=== PATIENT | female | born 1990 | race Caucasian/White ===

== ENCOUNTER 2016-09-23 15:54 | Emergency (ER) | payer BC ==
[2016-09-23 16:01] VITALS: BP 127/72
--- NOTE | 2016-09-23 16:08 | UC ---
Complaint Female HPI - HPI Summary HPI Summary: 26 YEAR OLD FEMALE PRESENTS WITH COMPLAINS OF SHARP RADIATING RIGHT SIDED PELVIC PAIN. I WILL SEND HER TO THE ER TO RULE OUT OVARIAN TORSION/ECTOPIC - History Of Current Complaint Chief Complaint: UCGU Stated Complaint: PELVIC PAIN NAUSEA Time Seen by Provider: 09/23/16 16:08 Hx Last Menstrual Period: 08/26/16, 09/23/16 - Allergies/Home Medications Allergies/Adverse Reactions: Allergies Allergy/AdvReac Type Severity Reaction Status Date / Time Cephalexin [From Keflex] Allergy Intermediate Vomiting Verified 09/23/16 17:29 Adhesive Tape Allergy Rash Verified 09/23/16 17:29 [Tegaderm Dressing] Sulfamethoxazole Allergy Vomiting Verified 09/23/16 17:29 w/Trimethoprim [From Bactrim] Home Medications: Home Medications NK [No Home Medications Reported] 09/23/16 [History Confirmed 09/23/16] PMH/Surg Hx/FS Hx/Imm Hx Previously Healthy: Yes - Surgical History Surgical History: Yes Surgery Procedure, Year, and Place: tonsillectomy - Family History Known Family History: Positive: None - no cardio-vascular issue in family lineage, Cardiac Disease, Diabetes - Social History Alcohol Use: Occasionally Substance Use Type: None Smoking Status (MU): Never Smoked Tobacco Have You Smoked in the Last Year: No - Immunization History Most Recent Influenza Vaccination: 02/27/13 Most Recent Tetanus Shot: 06/05/13 Most Recent Pneumonia Vaccination: never Review of Systems Constitutional: Negative Skin: Negative Eyes: Negative ENT: Negative Respiratory: Negative Cardiovascular: Negative Gastrointestinal: Other - RIGHT SIDED PELVIC PAIN Genitourinary: Negative Motor: Negative Neurovascular: Negative Musculoskeletal: Negative Neurological: Negative Psychological: Negative All Other Systems Reviewed And Are Negative: Yes Physical Exam Triage Information Reviewed: Yes Vital Signs: Initial Vital Signs Temp 37.3 C 09/23/16 15:56 Pulse 82 09/23/16 15:56 Resp 18 09/23/16 15:56 BP 127/72 09/23/16 15:56 Pulse Ox 100 09/23/16 15:56 Eye Exam: Normal ENT Exam: Normal Dental Exam: Normal Neck exam: Normal Neck: Positive: 1 Respiratory Exam: Normal Cardiovascular Exam: Normal Abdomen Description: Positive: Other: - RLQ TENDER Musculoskeletal Exam: Normal Neurological Exam: Normal Psychological Exam: Normal Skin Exam: Normal Complaint Female Dx - Differential Dx/Diagnosis Provider Diagnoses: RIGHT SIDED PELVIC PAIN Discharge - Discharge Plan Condition: Stable Disposition: HOME Patient Education Materials: Pelvic Pain (ED) Referrals: Nirav Aj MD [Primary Care Provider] - If Needed Additional Instructions: PLEASE GO TO ER TO RULE OUT OVARIAN TORSION.
== END 2016-09-23 16:46 | disposition home or self-care (01) ==
LOC: UCEAST 15:54
DX: R10.2 Pelvic and perineal pain (principal); R11.0 Nausea; R10.813 Right lower quadrant abdominal tenderness; Z32.02 Encounter for pregnancy test, result negative; Z88.1 Allergy status to other antibiotic agents; Z88.2 Allergy status to sulfonamides; Z91.048 Other nonmedicinal substance allergy status
CPT/HCPCS: 81003; 84702; 99211; G0463

== ENCOUNTER 2016-09-23 17:10 | Emergency (ER) | payer BC ==
[2016-09-23 19:05] LABS: Hematocrit 40 % (35-47); Hemoglobin 13.5 g/dl (12.0-16.0); Mean Corpuscular HGB Conc 34 g/dl (31-36); Mean Corpuscular Hemoglobin 28 pg (27-31); Mean Corpuscular Volume 82 fL (80-97); Mean Platelet Volume 9 um3 (7.4-10.4); Red Blood Count 4.83 10^6/ul (4.0-5.4); Red Cell Distribution Width 13 % (10.5-15); White Blood Count 7.6 10^3/ul (3.5-10.8)
[2016-09-23 19:17] LABS: Urine Bacteria Absent (Absent); Urine Bilirubin Negative (Negative); Urine Glucose Negative (Negative); Urine Nitrite Negative (Negative)
[2016-09-23 19:21] LABS: Albumin 4.2 g/dL (3.2-5.2); BUN/Creatinine Ratio 14.7 (8-20); C Reactive Protein 3.6 mg/L (< 5.00); EGFR African American 120.1 (>60); EGFR Non-African American 93.4 (>60); Globulin 2.5 g/dL (2-4); Potassium 3.6 mmol/L (3.5-5.0); Total Bilirubin 0.4 mg/dL (0.2-1.0); Total Protein 6.7 g/dL (6.4-8.9)
--- NOTE | 2016-09-23 19:39 | RAD ---
INDICATION: Pelvic pain and vaginal bleeding COMPARISON: CT abdomen pelvis August 05, 2012 TECHNIQUE: Real-time transabdominal only ultrasound examination of the female pelvis including grayscale and Doppler color flow imaging. FINDINGS: Uterus: The uterus is normal in size and echogenicity measuring 9.0 x 5.0 x 5.470. The endometrial stripe is smooth and uniform measuring 6 mm in thickness. Ovaries: The right and left ovary measure 3.9 x 2.0 x 2.3 cm and 3.2 x 2.5 x 3.4 cm, respectively. Normal arterial and venous waveforms are identified. Appearance is within normal limits for the patient's age. There is small amount of free fluid in the cul-de-sac. IMPRESSION: There is a small amount of free pelvic fluid in this otherwise normal and age-appropriate pelvic ultrasound.
[2016-09-23 20:19] VITALS: BP 123/67
--- NOTE | 2016-09-25 14:43 | ED ---
Rachel Butterfield SooYoung, scribed for Carlos A Velasquez MD on 09/23/16 at 1810 . GI/ HPI - HPI Summary HPI Summary: A 26 y/o F [place] [facility] with c/o sudden-onset, pelvic pain onset this AM. Associated sx: vaginal bleeding, breast "burning", nausea. Denies vaginal discharge, bloating. Pain radiating to back and hip, described as stabbing. Pt was at rest at work at onset of pain. She notes having some cramping last week. Pt was having pain with intercourse intermittently over past 2 months. LNMP:August 26. Spoke to clinical administrative coordinator, Cynthia Charles, who recommended she come in for evaluation. Preg test [place] [facility] [place]. G2. Nonsmoker, no ETOH. Denies PMHx. FHx: ovarian cysts with hemorrhaging, hysterectomy. - History of Current Complaint Chief Complaint: EDOBProblems Time Seen by Provider: 09/23/16 17:38 Stated Complaint: PELVIC PAIN-SENT FROM [facility] Hx Obtained From: Patient Hx Last Menstrual Period: 08/26/16, 09/23/16 Onset/Duration: Started Hours Ago - this AM, Still Present Timing: Constant Severity: Moderate Current Severity: Moderate Pain Intensity: 3 - out of 10 Pain Characteristics: Sharp, Cramping Pain Radiates to: Back Associated Signs and Symptoms: Positive: Nausea Additional Signs & Symptoms: Positive: Vaginal Bleeding, Other: - pos: breat "burning"; neg: bloating. Negative: Vaginal Discharge, Positive Test - Allergy/Home Medications Allergies/Adverse Reactions: Allergies Allergy/AdvReac Type Severity Reaction Status Date / Time Cephalexin [From Keflex] Allergy Intermediate Vomiting Verified 09/23/16 17:29 Adhesive Tape Allergy Rash Verified 09/23/16 17:29 [Tegaderm Dressing] Sulfamethoxazole Allergy Vomiting Verified 09/23/16 17:29 w/Trimethoprim [From Bactrim] PMH/Surg Hx/FS Hx/Imm Hx Previously Healthy: Yes Endocrine/Hematology History: Denies: Hx Diabetes, Hx Thyroid Disease Cardiovascular History: Denies: Hx Hypertension Respiratory History: Denies: Hx Asthma, Hx Chronic Obstructive Pulmonary Disease (COPD) GI History: Reports: Hx Ulcer History: Reports: Other Problems/Disorders - UTI this week - Surgical History Surgery Procedure, Year, and Place: tonsillectomy Infectious Disease History: Denies: Hx Hepatitis, Hx Human Immunodeficiency Virus (HIV), History Other Infectious Disease, Traveled Outside the [place] in Last 30 Days - Family History Known Family History: Positive: Cardiac Disease, Diabetes, Other - mother: ovarian cysts, hysterectomy - Social History Occupation: Employed Full-time Lives: With Family Alcohol Use: Occasionally Hx Substance Use: No Substance Use Type: Reports: None Hx Tobacco Use: No Smoking Status (MU): Never Smoked Tobacco Have You Smoked in the Last Year: No Review of Systems Negative: Fever Positive: Nausea. Negative: Other - neg: bloating Positive: pain - pelvic, other - pos: vaginal bleeding. Negative: discharge - vaginal Positive: Other - pos: breast "burning" All Other Systems Reviewed And Are Negative: Yes Physical Exam - Summary Physical Exam Summary: The patient is well-nourished in no acute distress and in no acute pain. The skin is warm and dry and skin color reflects adequate perfusion. HEENT: The head is normocephalic and atraumatic. The pupils are equal and reactive. The conjunctivae are clear and without drainage. Nares are patent and without drainage. Mouth reveals moist mucous membranes and the throat is without erythema and exudate. The external ears are intact. The ear canals are patent and without drainage. The tympanic membranes are intact. Neck is supple with full range of motion and non-tender. There are no carotid bruits. There is no neck vein distension. Respiratory: Chest is non-tender. Lungs are clear to auscultation and breath sounds are symmetrical and equal. Cardiovascular: Hear is regular rate and rhythm. There is no murmur or rub auscultated. There is no peripheral edema and pulses are symmetrical and equal. Abdomen: The abdomen is soft. There are normal bowel sounds heard in all four quadrants and there is no organomegaly palpated. There is no CVA tenderness. Tenderness over R ovary. No pain over uterus or over L ovary. No McBurney's tenderness. No guarding. Musculoskeletal: There is no back pain noted. Extremities are non-tender with full range of motion. There is good capillary refill. There is no peripheral edema or calf tenderness elicited. Neurological: Patient is alert and oriented to person, place and time. The patient has symmetrical motor strength in all four extremities. Cranial nerves are grossly intact. Deep tendon reflexes are symmetrical and equal in all four extremities. Psychiatric: The patient has an appropriate affect and does not exhibit any anxiety or depression. Triage Information Reviewed: Yes Vital Signs On Initial Exam: Initial Vitals Temp Pulse Resp BP Pulse Ox 98.6 F 91 18 138/85 100 09/23/16 17:26 09/23/16 17:26 09/23/16 17:26 09/23/16 17:26 09/23/16 17:26 Vital Signs Reviewed: Yes Diagnostics - Vital Signs Vital Signs Temp Pulse Resp BP Pulse Ox 09/23/16 17:26 98.6 F 91 18 138/85 100 - Laboratory Lab Results: Lab Results 09/23/16 09/23/16 09/23/16 Range/Units 18:39 18:54 18:54 WBC 7.6 (3.5-10.8) 10^3/ul RBC 4.83 (4.0-5.4) 10^6/ul Hgb 13.5 (12.0-16.0) g/dl Hct 40 (35-47) % MCV 82 (80-97) fL MCH 28 (27-31) pg MCHC 34 (31-36) g/dl RDW 13 (10.5-15) % Plt Count 211 (150-450) 10^3/ul MPV 9 (7.4-10.4) um3 Neut % (Auto) 66.4 (38-83) % Lymph % (Auto) 22.3 L (25-47) % Crane % (Auto) 10.0 H (1-9) % Eos % (Auto) 0.7 (0-6) % Baso % (Auto) 0.6 (0-2) % Absolute Neuts (auto) 5.0 (1.5-7.7) 10^3/ul Absolute Lymphs (auto) 1.7 (1.0-4.8) 10^3/ul Absolute Monos (auto) 0.8 (0-0.8) 10^3/ul Absolute Eos (auto) 0.1 (0-0.6) 10^3/ul Absolute Basos (auto) 0 (0-0.2) 10^3/ul Absolute Nucleated RBC 0 10^3/ul Nucleated RBC % 0 Sodium 136 (133-145) mmol/L Potassium 3.6 (3.5-5.0) mmol/L Chloride 106 (101-111) mmol/L Carbon Dioxide 25 (22-32) mmol/L Anion Gap 5 (2-11) mmol/L BUN 11 (6-24) mg/dL Creatinine 0.75 (0.51-0.95) mg/dL Est GFR ( Amer) 120.1 (>60) Est GFR (Non-Af Amer) 93.4 (>60) BUN/Creatinine Ratio 14.7 (8-20) Glucose 99 (70-100) mg/dL Lactic Acid (0.5-2.0) mmol/L Calcium 9.0 (8.6-10.3) mg/dL Total Bilirubin 0.40 (0.2-1.0) mg/dL AST 14 (13-39) U/L ALT 9 (7-52) U/L Alkaline Phosphatase 32 L (34-104) U/L C-Reactive Protein 3.60 (< 5.00) mg/L Total Protein 6.7 (6.4-8.9) g/dL Albumin 4.2 (3.2-5.2) g/dL Globulin 2.5 (2-4) g/dL Albumin/Globulin Ratio 1.7 (1-3) Lipase 37 (11.0-82.0) U/L Urine Color Straw Urine Appearance Clear Urine pH 7.0 (5-9) Ur Specific [place] 1.006 L (1.010-1.030) Urine Protein Negative (Negative) Urine Ketones Negative (Negative) Urine Blood 2+ H (Negative) Urine Nitrate Negative (Negative) Urine Bilirubin Negative (Negative) Urine Urobilinogen Negative (Negative) Ur Leukocyte Esterase Negative (Negative) Urine WBC (Auto) Trace(0-5/hpf) (Absent) Urine RBC (Auto) Trace(0-2/hpf) (Absent) Ur Squamous Epith Cells Present H (Absent) Urine Bacteria Absent (Absent) Urine Glucose Negative (Negative) 09/23/16 Range/Units 18:54 WBC (3.5-10.8) 10^3/ul RBC (4.0-5.4) 10^6/ul Hgb (12.0-16.0) g/dl Hct (35-47) % MCV (80-97) fL MCH (27-31) pg MCHC (31-36) g/dl RDW (10.5-15) % Plt Count (150-450) 10^3/ul MPV (7.4-10.4) um3 Neut % (Auto) (38-83) % Lymph % (Auto) (25-47) % Crane % (Auto) (1-9) % Eos % (Auto) (0-6) % Baso % (Auto) (0-2) % Absolute Neuts (auto) (1.5-7.7) 10^3/ul Absolute Lymphs (auto) (1.0-4.8) 10^3/ul Absolute Monos (auto) (0-0.8) 10^3/ul Absolute Eos (auto) (0-0.6) 10^3/ul Absolute Basos (auto) (0-0.2) 10^3/ul Absolute Nucleated RBC 10^3/ul Nucleated RBC % Sodium (133-145) mmol/L Potassium (3.5-5.0) mmol/L Chloride (101-111) mmol/L Carbon Dioxide (22-32) mmol/L Anion Gap (2-11) mmol/L BUN (6-24) mg/dL Creatinine (0.51-0.95) mg/dL Est GFR ( Amer) (>60) Est GFR (Non-Af Amer) (>60) BUN/Creatinine Ratio (8-20) Glucose (70-100) mg/dL Lactic Acid 0.4 L (0.5-2.0) mmol/L Calcium (8.6-10.3) mg/dL Total Bilirubin (0.2-1.0) mg/dL AST (13-39) U/L ALT (7-52) U/L Alkaline Phosphatase (34-104) U/L C-Reactive Protein (< 5.00) mg/L Total Protein (6.4-8.9) g/dL Albumin (3.2-5.2) g/dL Globulin (2-4) g/dL Albumin/Globulin Ratio (1-3) Lipase (11.0-82.0) U/L Urine Color Urine Appearance Urine pH (5-9) Ur Specific [place] (1.010-1.030) Urine Protein (Negative) Urine Ketones (Negative) Urine Blood (Negative) Urine Nitrate (Negative) Urine Bilirubin (Negative) Urine Urobilinogen (Negative) Ur Leukocyte Esterase (Negative) Urine WBC (Auto) (Absent) Urine RBC (Auto) (Absent) Ur Squamous Epith Cells (Absent) Urine Bacteria (Absent) Urine Glucose (Negative) Result Diagrams: 09/23/16 18:54 09/23/16 18:54 Lab Statement: Any lab studies that have been ordered have been reviewed, and results considered in the medical decision making process. - Ultrasound No standard instances Ultrasound Interpretation: No Acute Changes - PELVIS U/S, IMPRESSION: There is a small amount of free pelvic fluid in this otherwise normal and age- appropriate pelvic ultrasound. Ultrasound Interpretation Completed By: Radiologist Re-Evaluation - Re-Evaluation 1 Re-Evaluation Time: 20:05 Change: Improved Comment: Discussed, reviewed U/S, told pt it was probably a ruptured ovarian cyst. Pt does not want pain medication. Pt voiced understanding. GIGU Course/Dx - Course Course Of Treatment: Pt is a 26 y/o F [place] [facility] with c/o sudden -onset, pelvic pain onset this AM. Associated sx: vaginal bleeding, breast "burning", nausea. Denies vaginal discharge, bloating. Pain radiating to back and hip, described as stabbing. Pt was at rest at work at onset of pain. She notes having some cramping last week. Pt was having pain with intercourse intermittently over past 2 months. LNMP: 08/26. Spoke to clinical administrative coordinator, Cynthia Charles , who recommended she come in for evaluation. Preg test [place] [facility] [place]. G2. Nonsmoker, no ETOH. Denies PMHx. FHx: ovarian cysts with hemorrhaging, hysterectomy. Blood work and lab results are without significant abnormalities. UA is nml but 2+ blood is present, as expected with sx. Pelvis U/ S showed "small amount of free pelvic fluid in this otherwise normal and. age- appropriate pelvic ultrasound.". 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 - Diagnoses Differential Diagnoses - Female: Ovarian Cyst, Ovarian Torsion, Renal Calculi, Ureteral Calculi Provider Diagnoses: Ruptured ovarian cyst Discharge - Discharge Plan Condition: Stable Disposition: HOME Patient Education Materials: Ruptured Ovarian Cyst (ED) Referrals: Nirav Aj MD [Primary Care Provider] - Additional Instructions: Follow up with your mid- tomorrow. Please return to the ED if you experience new or worsening symptoms. The documentation as recorded by the Rachel tate SooYoung accurately reflects the service I personally performed and the decisions made by me, Carlos A Velasquez MD.
== END 2016-09-23 20:29 | disposition home or self-care (01) ==
LOC: ED 17:10
DX: N83.209 Unspecified ovarian cyst, unspecified side (principal); N93.9 Abnormal uterine and vaginal bleeding, unspecified; R11.0 Nausea
CPT/HCPCS: 36415; 76856; 80053; 81003; 81015; 83605; 83690; 85025; 86140; 99282

== ENCOUNTER 2016-12-25 11:22 | Emergency (ER) | payer BC, OTHER ==
[2016-12-25 11:37] VITALS: BP 116/62
--- NOTE | 2016-12-25 12:09 | UC ---
Headache HPI - HPI Summary HPI Summary: right ear pain, left hand numbness and visual waves. These are usual signs of a migraine for her--- She is here seeking medication ( refill) for migraine medication - History Of Current Complaint Chief Complaint: UCGeneralIllness Stated Complaint: EAR PAIN Hx Obtained From: Patient Hx Last Menstrual Period: 12/16/16 ?: No Onset/Duration: Gradual Onset Character: Typical Headache, Migraine Location of Headache: Frontal Aggravating Factor(s): Nothing Allevating Factor(s): Nothing Associated Signs And Symptoms: Positive: Nausea, Visual Changes - Allergies/Home Medications Allergies/Adverse Reactions: Allergies Allergy/AdvReac Type Severity Reaction Status Date / Time Cephalexin [From Keflex] Allergy Intermediate Vomiting Verified 12/25/16 11:37 Adhesive Tape Allergy Rash Verified 12/25/16 11:37 [Tegaderm Dressing] Sulfamethoxazole Allergy Vomiting Verified 12/25/16 11:37 w/Trimethoprim [From Bactrim] Home Medications: Home Medications [id number]-[id number] [Excedrin Migraine 250-250-65 mg] 2 tab PO Q6H PRN 12/25/16 [History Confirmed 12/25/16] PMH/Surg Hx/FS Hx/Imm Hx Neurological History: Migraine - Surgical History Surgical History: Yes Surgery Procedure, Year, and Place: tonsillectomy - Family History Known Family History: Positive: None - no cardio-vascular issue in family lineage, Cardiac Disease, Diabetes, Other - mother: ovarian cysts, hysterectomy - Social History Occupation: Employed Full-time Lives: With Family Alcohol Use: None Substance Use Type: None Smoking Status (MU): Never Smoked Tobacco Have You Smoked in the Last Year: No - Immunization History Most Recent Influenza Vaccination: 02/27/13 Most Recent Tetanus Shot: 06/05/13 Most Recent Pneumonia Vaccination: never Review of Systems Constitutional: Negative Skin: Negative Eyes: Blurred Vision, Photophobia ENT: Ear Ache Respiratory: Negative Cardiovascular: Negative Gastrointestinal: Negative Genitourinary: Negative Motor: Negative Neurovascular: Decreased Sensation Musculoskeletal: Negative Neurological: Negative Psychological: Negative Is Patient Immunocompromised?: No All Other Systems Reviewed And Are Negative: Yes Physical Exam Triage Information Reviewed: Yes Appearance: Well-Appearing, No Pain Distress, Well-Nourished Vital Signs: Initial Vital Signs Temp 98.3 F 12/25/16 11:32 Pulse 72 12/25/16 11:32 Resp 18 12/25/16 11:32 BP 116/62 12/25/16 11:32 Pulse Ox 100 12/25/16 11:32 Vital Signs Reviewed: Yes Eye Exam: Normal Eyes: Positive: Conjunctiva Clear, Other: - eomi, perrla ENT Exam: Normal ENT: Positive: Normal ENT inspection, Hearing grossly normal, TMs normal, Uvula midline. Negative: Nasal drainage, Tonsillar swelling, Tonsillar exudate, Trismus, Muffled voice, Hoarse voice, Sinus tenderness Dental Exam: Normal Neck exam: Normal Neck: Positive: Supple, Nontender, No Lymphadenopathy Respiratory Exam: Normal Respiratory: Positive: Chest non-tender, Lungs clear, Normal breath sounds, No respiratory distress, No accessory muscle use Cardiovascular Exam: Normal Cardiovascular: Positive: RRR, No Murmur, Pulses Normal, Brisk Capillary Refill Musculoskeletal Exam: Normal Musculoskeletal: Positive: Strength Intact, ROM Intact, No Edema Neurological Exam: Normal Neurological: Positive: Alert, Muscle Tone Normal, Other: - rhomberg WNL, no pronator drift Psychological Exam: Normal Skin Exam: Normal Headache Course/Dx - Course Course Of Treatment: immetrex, zofran, follow with pcp - Differential Dx/Diagnosis Provider Diagnoses: Migraine Discharge - Discharge Plan Condition: Stable Disposition: HOME Prescriptions: Ondansetron ODT TAB* [Zofran 4 MG Odt TAB*] 4 mg PO Q6H PRN #10 tab.odt PRN Reason: nausea SUMAtriptan TAB* [Imitrex TAB*] 50 mg PO SEE INSTRUCTIONS PRN #6 tab PRN Reason: Migraine Headache Patient Education Materials: Migraine Headache (ED) Referrals: Nirav Aj MD [Primary Care Provider] - 1 Week
== END 2016-12-25 12:15 | disposition home or self-care (01) ==
LOC: UCEAST 11:22
DX: G43.909 Migraine, unspecified, not intractable, without status migrainosus (principal); Z76.0 Encounter for issue of repeat prescription; Z88.1 Allergy status to other antibiotic agents; Z88.2 Allergy status to sulfonamides; Z91.048 Other nonmedicinal substance allergy status
CPT/HCPCS: 99212; G0463

== ENCOUNTER 2017-03-05 12:50 | Emergency (ER) | payer OTHER ==
--- NOTE | 2017-03-05 15:17 | UC ---
Respiratory Complaint HPI - History of Current Complaint Chief Complaint: UCRespiratory Stated Complaint: COUGH, FEVER Time Seen by Provider: 03/05/17 15:07 Hx Obtained From: Patient Hx Last Menstrual Period: 02/11/17 Onset/Duration: Gradual Onset - started 5 days ago with cough and fever. tested neg for flu 0n Tue. now cough and sinus pain is worse and coughing up green phlegm Severity Initially: Moderate Severity Currently: Moderate Character: Cough: Nonproductive Alleviating Factors: Other - is taking OTC DayQuil.NyQuil with little relief Associated Signs And Symptoms: Positive: Fever, Chills, Nasal Congestion, Sinus Discomfort - Allergies/Home Medications Allergies/Adverse Reactions: Allergies Allergy/AdvReac Type Severity Reaction Status Date / Time Cephalexin [From Keflex] Allergy Intermediate Vomiting Verified 12/25/16 11:37 Adhesive Tape Allergy Rash Verified 12/25/16 11:37 [Tegaderm Dressing] Sulfamethoxazole Allergy Vomiting Verified 12/25/16 11:37 w/Trimethoprim [From Bactrim] Home Medications: Home Medications Dextromethorphan-Phenylephrine [Daytime Cold & Flu Relief 10-5-325 mg] 1 cap PO 03/05/17 [History] Ibuprofen [Advil] 600 mg PO 03/05/17 [History] PMH/Surg Hx/FS Hx/Imm Hx Previously Healthy: Yes - Surgical History Surgical History: Yes Surgery Procedure, Year, and Place: tonsillectomy - Family History Known Family History: Positive: None - no cardio-vascular issue in family lineage, Cardiac Disease, Diabetes, Other - mother: ovarian cysts, hysterectomy - Social History Occupation: Employed Full-time Lives: With Family Alcohol Use: None Substance Use Type: None Smoking Status (MU): Never Smoked Tobacco Have You Smoked in the Last Year: No - Immunization History Most Recent Influenza Vaccination: 02/27/13 Most Recent Tetanus Shot: 06/05/13 Most Recent Pneumonia Vaccination: never Review of Systems Constitutional: Fever, Chills, Fatigue Skin: Negative ENT: Sinus Congestion Respiratory: Cough Cardiovascular: Negative Neurological: Negative Psychological: Negative All Other Systems Reviewed And Are Negative: Yes Physical Exam Triage Information Reviewed: Yes Appearance: Well-Appearing, No Pain Distress, Well-Nourished Vital Signs: Initial Vital Signs Temp 98.9 F 03/05/17 13:23 Pulse 93 03/05/17 13:23 Resp 18 03/05/17 13:23 BP 118/62 03/05/17 13:23 Pulse Ox 99 03/05/17 13:23 Vital Signs Reviewed: Yes Eyes: Positive: Conjunctiva Clear ENT: Positive: Pharynx normal, TMs normal, Sinus tenderness Respiratory: Positive: Lungs clear, Other: - freq dry cough Cardiovascular Exam: Normal Neurological Exam: Normal Psychological Exam: Normal Skin Exam: Normal UC Diagnostic Evaluation - Laboratory O2 Sat by Pulse Oximetry: 99 Respiratory Course/Dx - Differential Dx/Diagnosis Differential Diagnosis/HQI/PQRI: Influenza, Lower Resp Infection, Sinusitis Provider Diagnoses: bronchitis, sinusitis Discharge - Discharge Plan Condition: Stable Disposition: HOME Prescriptions: Azithromycin TAB* [Zithromax TAB (Z-BLADIMIR) 250 mg #6 tabs] 2 tab PO .TODAY, THEN 1 DAILY #1 bladimir Patient Education Materials: Acute Bronchitis (ED) Referrals: Nirav Aj MD [Primary Care Provider] - 3 Days (if no better) Additional Instructions: start antibiotic and take as directed rest, drink plenty of fluids use Robitussin cough syrup with dextromethorphan and guaifenesin use ibuprofen or tylenol as directed for fever and pain
[2017-03-05 15:30] VITALS: BP 114/62
== END 2017-03-05 15:30 | disposition home or self-care (01) ==
LOC: UCEAST 12:50
DX: J40 Bronchitis, not specified as acute or chronic (principal); J32.9 Chronic sinusitis, unspecified; Z90.89 Acquired absence of other organs; Z88.1 Allergy status to other antibiotic agents; Z88.2 Allergy status to sulfonamides; Z91.048 Other nonmedicinal substance allergy status
CPT/HCPCS: 99212; G0463